=== PATIENT | female | born 1965 | race Caucasian/White ===

== ENCOUNTER 2021-05-09 12:34 | Emergency (ER) | payer OTHER ==
[~2021-05-09] VITALS: Ht 165.1 cm; Wt 81.6 kg
[2021-05-09 12:36] VITALS: BP 94/74
[2021-05-09] MEDS ORDERED: ACETAMINOPHEN 500 MG TABLET PO ONE (13:00)
[2021-05-09] MEDS ORDERED: TRAMADOL HCL 50 MG TABLET PO ONE (13:00)
== END 2021-05-09 13:40 | disposition home or self-care (01) ==
LOC: EDH 12:34
DX: M25.511 Pain in right shoulder (principal); E11.9 Type 2 diabetes mellitus without complications; E78.00 Pure hypercholesterolemia, unspecified; I10 Essential (primary) hypertension
CPT/HCPCS: 73030